=== PATIENT | female | born 1955 | race Caucasian/White ===

== ENCOUNTER 2022-12-01 13:46 | Emergency (ER) | payer OTHER ==
[~2022-12-01] VITALS: Ht 162.6 cm; Wt 67.1 kg
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
[2022-12-01] MEDS ORDERED: CYCLOBENZAPRINE 10 MG TABLET PO ONE (16:30)
[2022-12-01] MEDS ORDERED: ACETAMINOPHEN ES 500 MG TABLET PO ONE (16:30)
[2022-12-01] MEDS ORDERED: CYCLOBENZAPRINE 10 MG TABLET ONE (16:37)
[2022-12-01] MEDS ORDERED: ACETAMINOPHEN ES 500 MG TABLET ONE (16:37)
[2022-12-01] MEDS ORDERED: CYCL10TA9 PO (18:31)
--- NOTE | 2022-12-01 18:39 | NUR ---
Patient discharged to home in stable condition. Written and verbal after care instructions given. Patient verbalizes understanding of instruction.
[2022-12-01 18:49] VITALS: BP 142/89
== END 2022-12-01 18:49 | disposition home or self-care (01) ==
LOC: ER 13:49
DX: M54.2 Cervicalgia (principal); M25.512 Pain in left shoulder; M25.511 Pain in right shoulder; R51.9 Headache, unspecified; I10 Essential (primary) hypertension; E11.9 Type 2 diabetes mellitus without complications; V89.2XXA Person injured in unspecified motor-vehicle accident, traffic, initial encounter; Y93.89 Activity, other specified; Y92.410 Unspecified street and highway as the place of occurrence of the external cause; Y99.8 Other external cause status
CPT/HCPCS: 70450-TC; 72125-TC; 73030-TC